=== PATIENT | male | born 1955 | race Asian ===

== ENCOUNTER 2020-04-17 22:05 | Inpatient (IN) | payer OTHER ==
[~2020-04-17] VITALS: Ht 182.9 cm; Wt 54.4 kg
[2020-04-17] MEDS ORDERED: ORAPRED ODT10 MG (22:28)
== END 2020-04-20 16:07 | disposition home or self-care (01) | DRG 639 ==
LOC: ER 22:05 → MEDJ 04-18 07:18 → SEC-K 04-18 09:36 → SURG 04-18 11:13
PROVIDERS: ADMIT Internal Medicine; ATTEND Internal Medicine
DX: E09.65 Drug or chemical induced diabetes mellitus with hyperglycemia (principal); N04.8 Nephrotic syndrome with other morphologic changes; T38.0X5A Adverse effect of glucocorticoids and synthetic analogues, initial encounter; E86.0 Dehydration; Z20.822 Contact with and (suspected) exposure to COVID-19; Z79.52 Long term (current) use of systemic steroids; Z79.4 Long term (current) use of insulin